=== PATIENT | female | born 1985 | race Caucasian/White ===

== ENCOUNTER 2018-06-30 21:17 | Emergency (ER) | payer OTHER, SELFPAY ==
[2018-06-30] MEDS ORDERED: Ondansetron PF 4 MG/2 ML Vial ONE (21:49)
[2018-06-30] MEDS ORDERED: Morphine 4 MG/ML VIAL ONE ×2 (21:49→22:36)
[2018-06-30 22:01] LABS: #Basophils 0.1 thou/uL (0.0-0.2); #Eosinphils 0.2 thou/uL (0.0-0.7); #Lymphocytes 2.9 thou/uL (1.20-3.40); #Monocytes 0.7 thou/uL (0.11-0.59); #Neutrophils 6.4 thou/uL (1.40-6.50); %Basophils 0.7 % (0.0-1.0); %Eosinophils 1.8 % (0.0-10.0); %Lymphocytes 28.2 % (21.0-51.0); %Neutrophils 62.3 % (42.0-75.0); Hemoglobin 12.6 g/dL (12.0-16.0); Mean Corpuscular HGB CONC 31.6 g/dL (32.0-36.0); Mean Corpuscular Hemoglobin 28.1 pg (27.0-31.0); Mean Corpuscular Volume 89.1 fL (78.0-98.0); Mean Platelet Volume 7.2 fL (7.4-10.4); Platelet Count 326 thou/uL (130-400); RBC Distribution Width 12.2 % (11.5-14.5); Red Blood Cell (RBC) Count 4.47 mill/uL (4.20-5.40); White Blood Cell (WBC) Count 10.3 thou/uL (4.8-10.8)
[2018-06-30 22:14] LABS: ALT (SGPT) 18 U/L (8-55); AST (SGOT) 14 U/L (5-34); Albumin 4.4 g/dL (3.5-5.0); Alkaline Phosphatase 71 U/L (40-150); Anion Gap 15 mmol/L (10-20); BUN (Urea Nitrogen) 12 mg/dL (7.0-18.7); Bilirubin, Total 0.4 mg/dL (0.2-1.2); Calc. Creatinine Clearance 0 mL/min (70-130); Calcium 9.2 mg/dL (7.8-10.44); Carbon Dioxide 26 mmol/L (22-29); Chloride 103 mmol/L (98-107); Estimated GFR-MDRD 63; Globulin 3.6 g/dL (2.4-3.5); Glucose 119 mg/dL (70-105); Potassium 3.6 mmol/L (3.5-5.1); Sodium 140 mmol/L (136-145)
[2018-06-30 22:45] LABS: Bilirubin Negative (Negative); Blood, Urine Large (Negative); Clarity CLOUDY (Clear); Glucose, Urine (Dipstick) Negative (Negative); Leukocyte Negative (Negative); Nitrite Negative (Negative); Protein, Urine (Dipstick) 30 mg/dL (Neg-Trace); Specific Gravity, Urine 1.026 (1.002-1.036); Urobilinogen 0.2 mg/dL (0.2-1.0); pH, Urine 5.5 (5.0-9.0)
[2018-06-30 22:46] LABS: Bacteria/HPF Rare-Few HPF (None Seen); Hyaline Casts/LPF 7-10 HYALINE CAST LPF (0-3 Hyaline); Pathc Cast-AUWi Flag 2.44 (0-2.49); RBC/HPF GREATER THAN 50-TNTC HPF (0-3)
[2018-06-30 22:48] LABS: Pregnancy Test - Urine (BHCG) Negative (Negative); Pregu Control Background? CLEAR/WHITE (CLR/WHITE); Pregu Control Bar Appear? YES (CONTROL BAR); Specific Gravity 1.026 (1.002-1.036)
--- NOTE | 2018-06-30 23:14 | CT ---
CT Stone Protocol History: [Abdominal pain] Comparison: None. Findings: Lung bases are clear. No pericardial effusion. Mild left hydroureteronephrosis and perinephric stranding due to a partially obstructive 2 x 2 mm sonya culus distal left ureter at the ureterovesicular junction. No bladder calculus is present. No other calculus of the left renal collecting system. No right hydroureteronephrosis or nephroureterolithiasi s. No free intraperitoneal gas or fluid. The appendix is normal. Retained lobulation of the kidneys. Noncontrast evaluation of the spleen, pancreas, liver, gall bladder are all normal. Aortoiliac contour is normal. No acute osseous abnormality. Impression: Partially obstructive calculus distal left ureter at the ureterovesicular junction measur ing 2 x 2 mm with subsequent low-grade left hydroureteronephrosis and perinephric stranding.
[2018-06-30] MEDS ORDERED: Ketorolac Tromethamine 30 MG/ML VIAL ONE (23:48)
[2018-07-01] MEDS ORDERED: Acetaminophen 500 MG TAB ONE (01:12)
== END 2018-07-01 01:14 | disposition home or self-care (01) ==
LOC: ERS 21:17
DX: N13.2 Hydronephrosis with renal and ureteral calculous obstruction (principal); M19.90 Unspecified osteoarthritis, unspecified site
CPT/HCPCS: 74176; 80053; 81003; 81015; 81025; 85025; 96361; 96374; 96375; 96376; J1885; J2270; J2405

== ENCOUNTER 2024-10-13 16:04 | Emergency (ER) | payer OTHER ==
[2024-10-13] MEDS ORDERED: Lidocaine 1% PF 5 ML VIAL ONE (17:41)
[2024-10-13] MEDS ORDERED: HYDROcodone/Acetaminophen 10/325 mg Tablet ONE (18:30)
== END 2024-10-13 19:16 | disposition home or self-care (01) ==
LOC: ERS 16:04
DX: K04.01 Reversible pulpitis (principal); H72.92 Unspecified perforation of tympanic membrane, left ear; Z55.6 Problems related to health literacy; Z75.3 Unavailability and inaccessibility of health-care facilities
CPT/HCPCS: 64400; J0665

== ENCOUNTER 2025-01-09 18:10 | Emergency (ER) | payer OTHER ==
[2025-01-09] MEDS ORDERED: HYDROcodone/Acetaminophen 10/325 mg Tablet ONE (21:31)
[2025-01-09 22:29] LABS: #Basophils 0.05 10x3/uL (0.0-0.2); #Eosinophils 0.22 10x3/uL (0.0-0.7); #Monocytes 1.00 10x3/uL (0.11-0.59); #Neutrophils 10.18 10x3/uL (1.40-6.50); %Basophils 0.4 % (0.0-1.0); %Eosinophils 1.6 % (0.0-10.0); %Lymphocytes 14.0 % (21.0-51.0); %Monocytes 7.5 % (0.0-10.0); %Neutrophils 75.9 % (42.0-75.0); Hematocrit 43.8 % (36.0-47.0); Hemoglobin 13.8 g/dL (12.0-16.0); Mean Corpuscular Hemoglobin 27.3 pg (27.0-31.0); Mean Corpuscular Volume 86.7 fL (78.0-98.0); Platelet Count 325 10x3/uL (130-400); Red Blood Cell (RBC) Count 5.05 mill/uL (4.20-5.40); White Blood Cell (WBC) Count 13.40 10x3/uL (4.8-10.8)
[2025-01-09 22:45] LABS: ALT (SGPT) 14 U/L (Less than 34); AST (SGOT) 14 U/L (11-34); Albumin 3.1 g/dL (3.1-4.5); Alkaline Phosphatase 43 U/L (40-110); Anion Gap 14 mmol/L (10-20); BUN (Urea Nitrogen) 11 mg/dL (7.0-18.7); Bilirubin, Total 0.4 mg/dL (0.3-1.2); CK (CPK) 35 U/L (29-168); Calc. Creatinine Clearance 0 mL/min (70-130); Calcium 7.9 mg/dL (7.8-10.44); Carbon Dioxide 22 mmol/L (22-29); Chloride 108 mmol/L (98-107); Globulin 2.7 g/dL (2.4-3.5); Glucose 106 mg/dL (70-105); Potassium 4.3 mmol/L (3.5-5.1); Sodium 140 mmol/L (136-145)
== END 2025-01-10 00:17 | disposition home or self-care (01) ==
LOC: ERS 18:10
DX: S80.12XA Contusion of left lower leg, initial encounter (principal); S80.11XA Contusion of right lower leg, initial encounter; M54.50 Low back pain, unspecified; M25.552 Pain in left hip; M25.551 Pain in right hip; V98.8XXA Other specified transport accidents, initial encounter
CPT/HCPCS: 36415; 72100; 80053; 82550; 85025; 90471; 90715; Q0162

== ENCOUNTER 2025-02-10 14:40 | Emergency (ER) | payer OTHER ==
[2025-02-10] MEDS ORDERED: cefTRIAXone (ROCEPHIN) 2 GM VIAL ONE (15:31)
[2025-02-10 15:35] LABS: #Basophils 0.07 10x3/uL (0.0-0.2); #Eosinophils 0.33 10x3/uL (0.0-0.7); #Monocytes 0.73 10x3/uL (0.11-0.59); #Neutrophils 6.32 10x3/uL (1.40-6.50); %Basophils 0.8 % (0.0-1.0); %Eosinophils 3.6 % (0.0-10.0); %Lymphocytes 18.0 % (21.0-51.0); %Monocytes 8.0 % (0.0-10.0); %Neutrophils 69.1 % (42.0-75.0); Hematocrit 40.9 % (36.0-47.0); Hemoglobin 12.9 g/dL (12.0-16.0); Mean Corpuscular Hemoglobin 26.5 pg (27.0-31.0); Mean Corpuscular Volume 84.0 fL (78.0-98.0); Platelet Count 391 10x3/uL (130-400); Red Blood Cell (RBC) Count 4.87 mill/uL (4.20-5.40); White Blood Cell (WBC) Count 9.15 10x3/uL (4.8-10.8)
[2025-02-10 15:47] LABS: ALT (SGPT) 16 U/L (Less than 34); AST (SGOT) 18 U/L (11-34); Albumin 3.0 g/dL (3.1-4.5); Alkaline Phosphatase 55 U/L (40-110); Anion Gap 13 mmol/L (10-20); BUN (Urea Nitrogen) 10 mg/dL (7.0-18.7); Bilirubin, Total 0.2 mg/dL (0.3-1.2); Calc. Creatinine Clearance 0 mL/min (70-130); Calcium 8.3 mg/dL (7.8-10.44); Carbon Dioxide 24 mmol/L (22-29); Chloride 107 mmol/L (98-107); Globulin 2.7 g/dL (2.4-3.5); Glucose 115 mg/dL (70-105); Potassium 3.6 mmol/L (3.5-5.1); Sodium 140 mmol/L (136-145)
== END 2025-02-10 20:03 | disposition home or self-care (01) ==
LOC: ERS 14:40
DX: L03.116 Cellulitis of left lower limb (principal); R60.9 Edema, unspecified
CPT/HCPCS: 71045; 80053; 83605; 83880; 84484; 85025; 87040; 93005; 93970; 96374; J0696